=== PATIENT | female | born 1970 | race Caucasian/White ===

== ENCOUNTER 2024-02-15 08:07 | Outpatient (AMB) | payer MEDICAID, SELFPAY ==
--- NOTE | 2024-02-15 08:18 | ORTHONT_ITS ---
Vital signs 02/15/24 08:19 Height 1.68 m Height Method Stated Weight 86.693 kg Weight Measurement Method Standing Scale BMI 30.7 BP 125/85 H Blood Pressure Source Automatic Cuff Blood Pressure Location Right Upper Arm Position Sitting Respiration 19 Pulse 90 Pulse Source Monitor Temp 97.7 F Temp Source Temporal Artery Scan Pulse Oximetry (%) 92 L Oxygen Delivery Method Room Air Med/Allergies Allergies & Medications Allergies codeine Allergy (Mild, Verified 02/15/24 08:22) Rash Medication Reconciliation No Known Home Medications 11/28/23 [History Confirmed 02/15/24] Subjective Visit Visit for: follow up visit and CT Immunization / Flu Flu Vaccine in the Last 12 Months: No Flu Vaccine Exclusion Criteria: Refused by Patient History of Present Illness Chief complaint: CT RESULTS Patient is a pleasant 53-year-old female who has significant right hip pain. This has been going on for over 3 years but is worse in the last 5 months. She takes [place] because of the pain. 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 Personal History Red flag PMH: smoker Pain Pain level (0-10): 6 Pain duration: CONSTANT Pain location: inside (medial) Pain quality: dull Pain timing: night and increases with activity Associated signs & symptoms: numbness, weakness and stiffness Ambulatory data Ambulatory device: none Treatments Improvement with previous injections: No Improvement with PT: No Improvement with NSAIDS: no Review of Systems Review of Systems: All systems negative unless otherwise noted in HPI. Exam Exam Patient is in no acute distress and is cooperative with the examination today. Breathing is nonlabored. In no respiratory distress. Patient has no paraspinal tenderness. Spinal deformity [cannot] be appreciated. The gait of the patient is [nonantalgic] Bilateral extremities were evaluated and demonstrates sensation intact to light touch. Palpable pedal pulses are present. No significant edema is present. Bilateral knees were examined and the patient has full strength and range of motion.. The left hip was examined. Patient was able to flex to 90 degrees, adduct to 30 degrees, abduct to 40 degrees, internally rotate to 20 degrees, and externally rotate to 20 degrees. Patient has a negative logroll. Stinchfield is negative. The patient is nontender diffusely to touch. The right hip was examined. Patient was able to flex to [90] degrees, adduct to [30] degrees, abduct to [40] degrees, internally rotate to 10 degrees, and externally rotate to [20] degrees. Patient has a Positive logroll. An MRI was reviewed. This demonstrates right hip avascular no sclerosis and collapse of the femoral head. There is severe joint space narrowing and osteophytes. X-rays demonstrate significant degenerative joint disease with collapse of the femoral head and arthritis. There is not much lateral coverage. We reviewed the CT scan and it appears to be adequate for a total hip replacement with primary components. Does not appear to be abnormal femoral version Assessment and Plan Problem List (1) Avascular necrosis of bone of right hip: Status: Acute Plan: Patient is a pleasant 53-year-old female with right hip avascular porosis. We discussed nonoperative and operative options. Jessica this point time, the patient is miserable. She is failed conservative treatment including anti- inflammatories and conservative management. The pain is affecting her quality life and happiness. We thus discussed total hip replacement as a reasonable option. I talked with the patient regarding her cardiac clearance. It appears it got denied. She is still working on getting cardiology clearance. The nature and purpose of the total hip replacement, alternative method(s) of treatment, the material risks involved, and the possibility of complications were fully explained to the patient. The patient does NOT have any of the following contraindications to HEBER: - Active infection of the hip joint, OR - Active systemic bacteremia, OR - Active skin infection or open wound at surgical site, OR - Neuropathic arthritis, OR - Severe, rapidly progressive neurological disease, OR - Severe medical condition that makes risks of the surgery outweigh the potential benefit The patient was told the most common risks and complications associated with a total hip replacement include, but are not limited to: blood clots in the leg, fatal pulmonary embolism, dislocation of the prosthesis, intraoperative and postoperative fractures of the femur or acetabulum, infection, failure of the prosthesis or grafting materials, complications from anesthesia, reactions to blood transfusions, postoperative leg length inequality, instability of the hip replacement, nerve damage or injury, vascular injury, delayed wound healing, infection, other injury or even . In addition, there are risks associated with anesthesia given during this operation. Also, the patient was told that after undergoing a total hip replacement there may still be persistent pain or disability. The patient was informed that the success of this operation in part depends upon the mechanical devices which are going to be implanted and that these devices can fail or malfunction, and may need to be repaired or replaced and there are no guarantees as to the longevity of this device or its parts and that it or its parts could fail prematurely. The patient was also notified that during the course of surgery, there may be a need to use bone graft from donors, and that any bone graft used will be carefully screened for communicable diseases, including AIDS, hepatitis, Serge-Creutzfeldt, or other diseases, but despite the screening procedures, there is a small chance that they could contract one of these diseases. Finally, the patient was asked to follow completely and fully with all advice and recommended treatments, and that recovery and ultimate outcome are affected by their compliance with recommended treatment. We discussed the risks, benefits and treatment alternatives, and the patient is interested in proceeding with surgery. We will try to set this up as expeditiously as possible. Office Procedures GNS Level of Care Nursing/Assessment Patient Status: Established Patient Nursing Assessment/Reassesment: Medication Reconciliation, Update PMH in EMR and Vital Signs Coordination of Care: Complex Care and Chronic Disease 1-5, Education Complex Pt/Fam, Consent,records obtained, informed consent, 1 Ins Authorization, Results/Orders obtained and Staff clarify orders Established Patient Charge Established Patient Point Assignment: 110 Established Patient Point Charge: EP Level 3 (80-115) Past Medical History Past Medical History Have you ever been diagnosed with any of the following: Cardiology Problems Congestive Heart Failure: No Respiratory Problems Chronic Obstructive Pulmonary Disease (COPD): No Smoking: Yes Smoking Cessation Counseling: No Smoking Exposure: Yes Genital/Urinary Problems Renal Disease: No Endocrine Problems Diabetes Mellitus Type 1: No Diabetes Mellitus Type 2: No Psychologic Problems Schizophrenia: Yes Bipolar Disorder: Yes Other Problems Blood Transfusions: Yes
[2024-02-15 08:19] VITALS: BP 125/85; PULSE 90; RESP 19; TEMP 36.5; O2SAT 92; BMI 30.7
== END 2024-02-15 08:41 | disposition home or self-care (01) ==
LOC: HODSRG 08:07
PROVIDERS: PCP Physician Assistant; Referring Provider Physician Assistant; Supervising Provider Orthopaedic Surgery Adult Reconstructive Orthopaedic Surgery; Visit Provider Orthopaedic Surgery Adult Reconstructive Orthopaedic Surgery
DX: M87.88 Other osteonecrosis, other site (principal)
CPT/HCPCS: 99213; G0463

== ENCOUNTER 2024-06-20 09:10 | Outpatient (AMB) | payer MEDICAID, SELFPAY ==
[2024-06-20 09:31] VITALS: BP 102/69; PULSE 94; RESP 8; TEMP 36.6; O2SAT 90; BMI 32.2
--- NOTE | 2024-06-20 09:31 | PD.ORTHCLVIS ---
Vital signs 06/20/24 09:31 Height 1.68 m Height Method Stated Weight 90.974 kg Weight Measurement Method Standing Scale BMI 32.2 BP 102/69 Blood Pressure Source Automatic Cuff Blood Pressure Location Right Upper Arm Position Sitting Respiration 8 L Pulse 94 Pulse Source Monitor Temp 97.8 F Temp Source Temporal Artery Scan Pulse Oximetry (%) 90 L Oxygen Delivery Method Room Air Med/Allergies Allergies & Medications Allergies codeine Allergy (Mild, Verified 06/20/24 09:32) Rash Medication Reconciliation No Known Home Medications 11/28/23 [History Confirmed 06/20/24] Exam Exam Patient is in no acute distress and is cooperative with the examination today. Breathing is nonlabored. In no respiratory distress. Patient has no paraspinal tenderness. Spinal deformity [cannot] be appreciated. The gait of the patient is [nonantalgic] Bilateral extremities were evaluated and demonstrates sensation intact to light touch. Palpable pedal pulses are present. No significant edema is present. Bilateral knees were examined and the patient has full strength and range of motion.. The left hip was examined. Patient was able to flex to 90 degrees, adduct to 30 degrees, abduct to 40 degrees, internally rotate to 20 degrees, and externally rotate to 20 degrees. Patient has a negative logroll. Stinchfield is negative. The patient is nontender diffusely to touch. The right hip was examined. Patient was able to flex to [90] degrees, adduct to [30] degrees, abduct to [40] degrees, internally rotate to 10 degrees, and externally rotate to [20] degrees. Patient has a Positive logroll. An MRI was reviewed. This demonstrates right hip avascular no sclerosis and collapse of the femoral head. There is severe joint space narrowing and osteophytes. X-rays demonstrate significant degenerative joint disease with collapse of the femoral head and arthritis. There is not much lateral coverage. We reviewed the CT scan and it appears to be adequate for a total hip replacement with primary components. Does not appear to be abnormal femoral version Assessment and Plan Problem List (1) Avascular necrosis of bone of right hip: Status: Acute Plan: Patient is a pleasant 53-year-old female with right hip avascular porosis. We discussed nonoperative and operative options. Jessica this point time, the patient is miserable. She has failed conservative treatment including anti-inflammatories and conservative management. The pain is affecting her quality life and happiness. We thus discussed total hip replacement as a reasonable option. I talked with the patient regarding her cardiac clearance. It appears it got denied. She is still working on getting cardiology clearance. The nature and purpose of the total hip replacement, alternative method(s) of treatment, the material risks involved, and the possibility of complications were fully explained to the patient. The patient does NOT have any of the following contraindications to HEBER: - Active infection of the hip joint, OR - Active systemic bacteremia, OR - Active skin infection or open wound at surgical site, OR - Neuropathic arthritis, OR - Severe, rapidly progressive neurological disease, OR - Severe medical condition that makes risks of the surgery outweigh the potential benefit The patient was told the most common risks and complications associated with a total hip replacement include, but are not limited to: blood clots in the leg, fatal pulmonary embolism, dislocation of the prosthesis, intraoperative and postoperative fractures of the femur or acetabulum, infection, failure of the prosthesis or grafting materials, complications from anesthesia, reactions to blood transfusions, postoperative leg length inequality, instability of the hip replacement, nerve damage or injury, vascular injury, delayed wound healing, infection, other injury or even . In addition, there are risks associated with anesthesia given during this operation. Also, the patient was told that after undergoing a total hip replacement there may still be persistent pain or disability. The patient was informed that the success of this operation in part depends upon the mechanical devices which are going to be implanted and that these devices can fail or malfunction, and may need to be repaired or replaced and there are no guarantees as to the longevity of this device or its parts and that it or its parts could fail prematurely. The patient was also notified that during the course of surgery, there may be a need to use bone graft from donors, and that any bone graft used will be carefully screened for communicable diseases, including AIDS, hepatitis, Serge-Creutzfeldt, or other diseases, but despite the screening procedures, there is a small chance that they could contract one of these diseases. Finally, the patient was asked to follow completely and fully with all advice and recommended treatments, and that recovery and ultimate outcome are affected by their compliance with recommended treatment. We discussed the risks, benefits and treatment alternatives, and the patient is interested in proceeding with surgery. We will try to set this up as expeditiously as possible. Office Procedures GNS Level of Care Nursing/Assessment Patient Status: Established Patient Nursing Assessment/Reassesment: Medication Reconciliation, Update PMH in EMR and Vital Signs Coordination of Care: Complex Care and Chronic Disease 1-5, Education Complex Pt/Fam, Consent,records obtained, informed consent, 2-3 Insurance Autorizations needed, Lab and Imaging orders, Results/Orders obtained and Staff clarify orders Established Patient Charge Established Patient Point Assignment: 130 Established Patient Point Charge: EP Level 4 (120-155) MA Intake Visit Data Collection New Patient or Established: Established Patient (seen at [facility] within 3 years) Reason for Visit:: PRE-OP RIGHT HIP Seen by Clinical Staff ONLY (RN/MA): No Verbal consent obtained for Telemed visit?: 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 PCP or OBGYN visit in last 3 months: Yes Hx Now: No Do You Feel Safe at Home: Yes Authorities Contacted: N/A Questionairres Past Medical History Past Medical History Have you ever been diagnosed with any of the following: Cardiology Problems Congestive Heart Failure: No Respiratory Problems Chronic Obstructive Pulmonary Disease (COPD): No Smoking: Yes Smoking Cessation Counseling: No Smoking Exposure: Yes Genital/Urinary Problems Renal Disease: No Endocrine Problems Diabetes Mellitus Type 1: No Diabetes Mellitus Type 2: No Psychologic Problems Schizophrenia: Yes Bipolar Disorder: Yes Other Problems Blood Transfusions: Yes Subjective Visit Visit for: follow up visit and hip Immunization / Flu Flu Vaccine in the Last 12 Months: No Flu Vaccine Exclusion Criteria: No Exclusion Criteria History of Present Illness Chief complaint: PRE-OP RIGHT HIP Patient is a 53-year-old female with right hip avascular porosis. The pain is affecting her quality life and happiness. She recently got a cardiac clearance and was cleared for surgery. This did delay surgery quite a bit Pain Pain level (0-10): 7 Pain duration: ALL DAY Pain location: groin Pain quality: sharp, dull and aching Pain timing: increases with activity Associated signs & symptoms: numbness, weakness and stiffness Ambulatory data Ambulatory device: none Treatments Improvement with previous injections: No Improvement with PT: No Improvement with NSAIDS: no Review of Systems Review of Systems: All systems negative unless otherwise noted in HPI.
== END 2024-06-20 10:35 | disposition home or self-care (01) ==
LOC: HODSRG 09:10
PROVIDERS: PCP Physician Assistant; Referring Provider Physician Assistant; Supervising Provider Orthopaedic Surgery Adult Reconstructive Orthopaedic Surgery; Visit Provider Orthopaedic Surgery Adult Reconstructive Orthopaedic Surgery
DX: M87.9 Osteonecrosis, unspecified (principal)
CPT/HCPCS: 99214; G0463

== ENCOUNTER → 2024-07-10 | Outpatient (CLI) | payer MEDICAID, SELFPAY ==
--- NOTE | 2024-07-10 16:30 | XR_ITS ---
Examination: CT bilateral lower extremities, without contrast. 2-D sagittal reconstructions. 2-D coronal reconstructions. 3-D reconstructions. Date and time of exam:July 10, 2024 1626 hours INDICATIONS: Right hip pain, diagnosis unilateral osteoarthritis right hip 2 years CTDI: vol (mGy):16.4 DLP: (mGycm):887 Technique: Multiple 1.25 mm axial sections of the bilateral lower extremities without intravenous contrast have been obtained. 2-D sagittal and coronal reconstructions have been obtained. 3-D reconstructions have been obtained. Low dose protocols were performed. One or more of the following dose reduction techniques were used; automated exposure control, adjustment of the mA and/or KV according to patient size, use of iterative reconstruction technique. Findings: Moderate osteopenia Advanced right hip osteoarthritis, severe joint space narrowing and subarticular cyst formation Advanced narrowing left hip joint Moderate narrowing medial joint space right knee Moderate narrowing medial joint space left knee IMPRESSION: Advanced right hip osteoarthritis, severe joint space narrowing
[2024-07-10 17:20] LABS: HCG Qualitative,Urine Negative
== END | disposition home or self-care (01) ==
LOC: CCTX 16:06
PROVIDERS: PCP Physician Assistant; Referring Provider Orthopaedic Surgery Adult Reconstructive Orthopaedic Surgery; Visit Provider Orthopaedic Surgery Adult Reconstructive Orthopaedic Surgery
DX: M16.11 Unilateral primary osteoarthritis, right hip (principal); M25.851 Other specified joint disorders, right hip
CPT/HCPCS: 72192; 73700; 81025

== ENCOUNTER 2024-07-17 05:30 | Day surgery (SDC) | payer MEDICAID, SELFPAY ==
[2024-07-15 10:04] VITALS: BMI 32.2
[2024-07-15 10:54] LABS: Basophils # (Auto) 0.1 Thou/mm3 (0.0-0.2); Basophils % (Auto) 1 % (0-2.5); Eosinophils # (Auto) 0.2 Thou/mm3 (0.0-0.5); Eosinophils % (Auto) 2 % (0-10); Hematocrit 40.8 % (36.0-46.0); Hemoglobin 13.7 g/dL (12.0-16.0); Immature Granulocytes % (Auto) 0 % (0-0); Immature Granulocytes Auto 0.02 Thou/mm3 (0.00-0.00); Lymphocytes # (Auto) 1.6 Thou/mm3 (1.0-4.8); Lymphocytes % (Auto) 20 % (10-50); Mean Corpuscular HGB Conc 33.6 g/dl (31.0-37.0); Mean Corpuscular Hemoglobin 30.2 pg (25.0-35.0); Mean Corpuscular Volume 90 fL (80-100); Monocytes # (Auto) 0.5 Thou/mm3 (0.0-0.8); Monocytes % (Auto) 6 % (0-12); Neutrophils # (Auto) 5.7 Thou/mm3 (1.8-7.7); Neutrophils % (Auto) 71 % (37-80); Nucleated Red Blood Cell % 0 /100 WBC (0); Platelet Count 220 Thou/mm3 (140-440); RDW Standard Deviation 50.7 fL (36.4-46.3); Red Blood Count 4.53 Miln/mm3 (4.00-5.20)
[2024-07-15 11:09] LABS: Partial Thromboplastin Time 27.3 Seconds (22.0-36.0)
[2024-07-15 11:33] LABS: Alanine Aminotransferase 12 U/L (10-49); Albumin, Serum 4.6 gm/dL (3.5-5.0); Albumin/Globulin Ratio 1.4 (1.2-2.2); Alkaline Phosphatase 115 U/L (46-116); Anion Gap 10 (7-16); Aspartate Amino Transferase 16 U/L (0-34); BUN/Creatinine Ratio 13 Ratio (12-20); Bilirubin,Total 0.5 mg/dL (0.3-1.2); Blood Urea Nitrogen 8 mg/dL (9-23); Calcium 9.7 mg/dL (8.3-10.6); Calcium (Corrected) 9.7 mg/dL (8.5-10.1); Carbon Dioxide 21.7 mMol/L (20.0-31.0); Chloride 104 mMol/L (98-107); Creatinine (Component) 0.6 mg/dL (0.6-1.3); Estimated Creatinine Clearance 118.7 mL/min (>60); Globulin 3.3 gm/dL (2.3-3.5); Glucose 105 mg/dL (74-106); Osmolality,Calculated 270 (275-295); Potassium 4.1 mMol/L (3.4-5.1); Sodium 136 mMol/L (136-145); Total Protein 7.9 gm/dL (5.7-8.2); eGFR > 60 See Note
--- NOTE | 2024-07-16 15:14 | SUR.PREOP ---
Cardiac history and records reviewed with Dr Reich.
[2024-07-17] VITALS (18 sets, daily range): BP systolic 101–146; BP diastolic 57–88; PULSE 55–79; RESP 12–20; TEMP 36.2–37.1; O2SAT 95–99; BMI 32.3; BMI 13.0
[2024-07-17] MEDS: MELOXICAM 7.5 MG TABLET PO (06:19)
[2024-07-17] MEDS: ACETAMINOPHEN 325 MG TABLET 650 MG PO (06:19)
[2024-07-17] MEDS: PREGABALIN 75 MG CAPSULE PO (06:19)
--- NOTE | 2024-07-17 07:15 | CHAP ---
Visited briefly with patient and talked a bit about her family and had prayer before her procedure.
--- NOTE | 2024-07-17 08:30 | XR_ITS ---
Examination: AP right hip 2 views Technique: AP right hip 2 views Exam date and time: July 17, 2024 0910 hrs. Indications: Status post total right hip arthroplasty Findings: Moderate osteopenia Total right hip arthroplasty. Satisfactory alignment Impression: Total right hip arthroplasty with satisfactory alignment
--- NOTE | 2024-07-17 09:48 | PD.SUROPNT ---
Date of Procedure 07/17/24 Pre Op Diagnosis right hip osteoarthritis Post Op Diagnosis right hip osteoarthritis Procedure right total hip replacement Findings full thickness cartilage loss and osteophytes Procedure Description Indications: The patient is a 54 y.o. year-old with a longstanding history of right hip pain. After considering the patient's condition and the impact of their hip injury on the patient's quality of life and risks of nonoperative treatment, total hip replacement was offered as a reasonable option. Prior to the surgery I discussed the nature of the hip replacement surgery including alternatives to surgery and the purpose of, and indications for proceeding with surgery. I discussed that this surgery is a shared decision between the patient and the surgeon. We also discussed her risk of infection given her recent increase in weight. Risks and benefits and alternatives of the procedure have been explained to the patient and their family. Anesthesia complications and risks include but are not limited to stroke, heart attack, and . The surgical risks include but are not limited to infection, instability/dislocation, bleeding, nerve and blood vessel injury, deep vein thrombosis, pulmonary embolus, stiffness, pain, scar, need for reoperation, leg length discrepancy, thigh numbness, weakness, and mechanical failure of the implant including loosening, metal complications, metal allergy, wear or breakage. I discussed the expected recovery from surgery and the importance of compliance with all our pre and post-operative recommendations in order to maximize the recovery. The patient/family understands the risks of loss of life, loss of limb and, loss of function and wishes to proceed. They understand they are at increased risk for infection given their history of smoking. A signed and witnessed consent was obtained and placed in the chart. Patient Positioning: The patient was placed in the lateral decubitus position on a standard table using a pegboard. An axillary role was placed. All extremities were padded to ensure adequate protection. A matamoros catheter was aseptically inserted. Time Out: A timeout was performed prior to the procedure which verified the correct patient, positioning, operation to be performed, operative site, antibiotics, allergies, imaging, and any other concerns. All parties were in agreement. Procedure in detail: The operative site was cleaned and draped in the usual sterile fashion. A final timeout was performed with all parties in agreement. We first placed hip arrays above the ASIS. A modified anterolateral approach to the hip was utilized. A 16cm skin incision was made centered over the greater trochanter in line with the femur. This was taken down through skin and subcutaneous tissue using a 10 blade. Bleeding was controlled using electrocautery. The fascia was identified and split in line with the femur. The charnley retractor was then placed. The abductor insertion was identified and a split made in the anterior 1/3 of the tendon proximally. Retractors were placed and the gluteus minimus was visualized. A capsulotomy was made down to the femoral neck anterior to the minimus. A split was then made in the anterior 1/3 of the vastus lateralis. A retractor was then placed anterior to the femoral shaft, the tendon was tagged with #1 ethibond sutures and a U-shaped split was made in the anterior 1/3 of the abductor tendon being careful to leave enough tendon to re-attach. The hip was then gently externally rotated as the anterior tissues were taken down with the tendon and capsule as one sleeve. Once the anterior tissue had been release off of bone a bone hook was placed and the hip was gently dislocated. Retractors were placed around the femoral neck and the femoral neck osteotomy was then made to freshen up the cut. The femoral head removed. The leg was then placed in extension and retractors were placed anterior and posterior to the acetabulum. The inferior capsule was release to improved visualization and the labrum and osteophytes around the acetabulum were removed. The acetabulum was then reamed to bleeding bone with adequate wall coverage and the cup was impacted into place. The [employer] robot was used for reaming and placement. Screws were then placed followed by the liner which was impacted and confirmed to be seated. We then turned our attention to the femur. The leg was brought into external rotation and the femur was exposed. A canal finder was used followed by a box osteotomy and the femur was broached sequentially. The trial stem was then left in and the hip was trialed using various neck offsets and head sizes until the appropriate size was found based on leg length, stability. We then verified length and offset with the robot. Once we were satisfied with the construct a cross-table AP pelvis radiograph was obtained to confirm appropriate positioning and sizing. The hip was then dislocated and the trials were then removed and the final stem impacted into placed. The hip was then again trialed and the appropriate head size identified. The forbes taper was then cleaned and dried and the final head impact into place and tested. The acetabulum was irrigated and confirmed to be free of debris. The hip was then reduced and taken through range of motion. The hip was stable in abduction and external rotation, adduction and external rotation, flexion past 90 degrees and internal rotation past 20 degrees. It did not sublux throughout range of motion and no impingement was detected. Leg lengths were appropriately restored based on preoperative leg lengths and intraoperative testing. . The hip was then copiously irrigated with dilute betadine followed by normal saline. The hip was then injected with the cocktail per protocol The hip was the closed in layers. The abductor tendon was closed with #1 ethibond. The fascia was closed with 0 Vicryl followed by an 0 V-lock. . The deep layer was closed with 0-Vicryl and the subcutaneous layer by a 2-0 Vicryl. The subdermal layer was closed with a 3-0 monocryl. The skin was then cleaned and dried and steri-strips placed followed by a sterile dressing. The drapes were then taken down and the patient was placed supine. Leg lengths were confirmed to be appropriate and the patient's lower extremities were warm and well perfused with brisk capillary refill and palpable pulses. The patient was then awoken, transferred to the [facility] and taken to the PACU in stable condition. They tolerated the procedure well. The patient's family/caregiviers were made aware of their condition. Postoperative plan Activity: WBAT, no hip precautions , no active hip abduction DVT Prophylaxis: aspirin 81mg BID Antibiotics: Standard postoperative antibiotics x 24 hours Implants: Jayden 48 cup, 3 HO insignia, 1 screw, standard liner, 36+5 head Anesthesia GETA Implants jayden Pathology / specimen None Pathology comment: none Estimated Blood Loss 150 Condition Stable Disposition same day Surgeon Jaya Fry MD Surgical Staff Operation Date: 07/17/24 07:30 Case Staff SENIOR ENGINEERING TECHNICIAN: Kai Langston RN First Assistant: Ciara Flores
--- NOTE | 2024-07-17 09:56 | XR_ITS ---
Examination:Right hip AP, lateral, AP pelvis 3 views Technique: Hip AP lateral, AP pelvis, 3 views Exam date and time:July 17, 2024 1003 hrs. Indications: Postop right hip arthroplasty Findings: Total right hip arthroplasty. Satisfactory alignment Moderate narrowing left hip joint Impression: Total right hip arthroplasty with satisfactory alignment.
--- NOTE | 2024-07-17 10:10 | SUR.PHASEI ---
1010 Patient arrived to recovery resting comfortably in [facility], on oxygen 8L via oxy mask, breathing unlabored, vital signs stable, denies pain, dressing intact to right hip; prieno, telfa, abd, medipore tape, no bleeding noted, bilateral dorsalis pedis pulses present when palpated, patient has good circulation to right lower extremity; skin color normal for patient and warm to touch, report received from Renetta JOHNSON/Sosa JOHNSON and Kai BARAJAS
--- NOTE | 2024-07-17 10:45 | SUR.PHASEI ---
1045 XRAY complete per MD order
--- NOTE | 2024-07-17 11:42 | SUR.PHASEII ---
pt sitting [place] in [facility] [place] incentive spirometer, VS stable, breathing unlabored, dressing to right hip clean, dry, and intact, pt denies pain, report from Kacey Parks RN
--- NOTE | 2024-07-17 12:10 | SUR.PHASEII ---
Chapar[facility]a Physical Therapist at bedside
--- NOTE | 2024-07-17 12:27 | SUR.PHASEII ---
1227 Patient cleared by physical therapy Chaparrita to proceed with discharge
--- NOTE | 2024-07-17 12:35 | SUR.PHASEII ---
1235 called patients to let him know patient is ready for discharge, stated he was having lunch and would come when he was done
== END 2024-07-17 13:54 | disposition home or self-care (01) ==
PROVIDERS: Anesthesiology; PCP Physician Assistant; Referring Provider Orthopaedic Surgery Adult Reconstructive Orthopaedic Surgery; Visit Provider Orthopaedic Surgery Adult Reconstructive Orthopaedic Surgery
PROC: (CPT 27130; principal; 2024-07-17 07:30)
DX: M16.11 Unilateral primary osteoarthritis, right hip (principal); Z87.891 Personal history of nicotine dependence; M25.751 Osteophyte, right hip
CPT/HCPCS: 27130; 36415; 73501; 73502; 80053; 85025; 85610; 85730; 97162; A4217; A4649; C1713; C1776; J0131; J0690; J1100; J2250; J2704; J3010; J3490; J7030; J7999; A9270

== ENCOUNTER 2024-08-01 11:03 | Outpatient (AMB) | payer MEDICAID, SELFPAY ==
[2024-08-01 11:22] VITALS: BP 121/75; PULSE 98; RESP 18; TEMP 36.4; O2SAT 91; BMI 32.8
--- NOTE | 2024-08-01 11:22 | ORTHONT_ITS ---
Vital signs 08/01/24 11:22 Height 1.65 m Height Method Stated Weight 89.414 kg Weight Measurement Method Standing Scale BMI 32.8 BP 121/75 Blood Pressure Source Automatic Cuff Blood Pressure Location Right Upper Arm Position Sitting Respiration 18 Pulse 98 Pulse Source Monitor Temp 97.5 F Temp Source Temporal Artery Scan Pulse Oximetry (%) 91 L Oxygen Delivery Method Room Air Med/Allergies Allergies & Medications Allergies No Known Allergies Allergy (Verified 08/01/24 11:23) Medication Reconciliation alprazolam 0.5 mg tablet 0.5 mg PO Q8HR PRN anxiety 07/15/24 [History Confirmed 08/01/24] atorvastatin 20 mg tablet 20 mg PO DAILY 07/15/24 [History Confirmed 08/01/24] hydrocodone 5 mg-acetaminophen 325 mg tablet 1 tab PO Q12H PRN pain 07/15/24 [History Confirmed 08/01/24] levalbuterol tartrate 45 mcg/actuation aerosol inhaler 1 inh inhalation Q4H PRN shortness of breath or wheezing 07/15/24 [History Confirmed 08/01/24] lurasidone 20 mg tablet (Latuda) 20 mg PO QAM 07/15/24 [History Confirmed 08/01/24] acetaminophen 500 mg tablet (Acetaminophen Extra Strength) 1,000 mg (2 x 500 mg) PO Q6H PRN pain #90 tabs 07/17/24 [Rx Confirmed 08/01/24] aspirin 81 mg tablet,delayed release 81 mg PO BID #60 tabs 07/17/24 [Rx Confirmed 08/01/24] doxycycline hyclate 100 mg tablet 100 mg PO BID #14 tabs 07/17/24 [Rx Confirmed 08/01/24] gabapentin 300 mg capsule 300 mg PO .qhs #30 caps 07/17/24 [Rx Confirmed 08/01/24] hydrocodone 5 mg-acetaminophen 325 mg tablet 1 tab PO Q6H PRN pain #28 tabs 07/17/24 [Rx Confirmed 08/01/24] oxycodone 5 mg tablet 5 mg PO Q6H PRN pain #28 tabs 07/17/24 [Rx Confirmed 08/01/24] sennosides 8.6 mg-docusate sodium 50 mg tablet (Senna-S) 1 tab-cap PO QDAY #30 tabs 07/17/24 [Rx Confirmed 08/01/24] Exam Exam Patient is in no acute distress and is cooperative with the examination today. Patient has a normal mood and affect. Breathing is nonlabored. In no respiratory distress. Bilateral extremities were evaluated and demonstrates sensation intact to light touch. Palpable pedal pulses are present. No significant edema is present. Right hip incision is clean dry and intact Assessment and Plan Problem List (1) Avascular necrosis of bone of right hip: Status: Acute Plan: Patient is a pleasant 53-year-old female with right hip avascular Necrosis who had a recent right total hip replacement 2 weeks ago. She is doing well. She should transition to outpatient physical therapy and finish her DVT prophylaxis Office Procedures GNS Level of Care Nursing/Assessment Patient Status: Established Patient Nursing Assessment/Reassesment: Medication Reconciliation, Update PMH in EMR and Vital Signs Coordination of Care: Complex Care and Chronic Disease 1-5, Education Complex Pt/Fam, Consent,records obtained, informed consent, Lab and Imaging orders, Results/Orders obtained and Staff clarify orders Established Patient Charge Established Patient Point Assignment: 110 Established Patient Point Charge: EP Level 3 (80-115) MA Intake Visit Data Collection New Patient or Established: Established Patient (seen at [facility] within 3 years) Reason for Visit:: 2 WEEK POST OP Seen by Clinical Staff ONLY (RN/MA): No Verbal consent obtained for Telemed visit?: No Objects Conservator Required: No PCP or OBGYN visit in last 3 months: Yes Hx Now: No Do You Feel Safe at Home: Yes Authorities Contacted: N/A Questionairres Past Medical History Past Medical History Have you ever been diagnosed with any of the following: Neurological Problems Seizures: No Cardiology Problems Hypercholesterolemia: Yes Congestive Heart Failure: No Respiratory Problems Chronic Obstructive Pulmonary Disease (COPD): No Asthma: Yes Smoking: Yes Smoking Cessation Counseling: No Smoking Exposure: Yes Stomache/Intestinal Problems Hepatitis: No Obesity: Yes Genital/Urinary Problems Renal Disease: No Reproductive Problems Previous Pregnancies: Yes Musculoskeletal Problems Arthritis: Yes Endocrine Problems Diabetes Mellitus Type 1: No Diabetes Mellitus Type 2: No Psychologic Problems Schizophrenia: No Bipolar Disorder: Yes Anxiety: Yes Other Problems Hospitalization: Yes Shingles: No Blood Transfusions: No Blood Transfusion Reaction: No Anesthesia Reactions: No Chicken Pox: Yes Cancer: No Subjective Visit Visit for: post op #1 and hip Immunization / Flu Flu Vaccine in the Last 12 Months: Yes Flu Vaccine Exclusion Criteria: No Exclusion Criteria History of Present Illness Chief complaint: 2 WEEK POST OP HEBER Date of 1st surgery (if applicable): 07/17/24 Patient is doing well 2 weeks status post right total hip replacement. She is doing well Personal History Occupation: DISABLED Red flag PMH: BMI BMI Counceling provided: Yes Pain Pain level (0-10): 8 Pain location: groin Pain quality: sharp, dull and aching Pain timing: night and increases with activity Associated signs & symptoms: numbness Ambulatory data Ambulatory device: walker Treatments Improvement with previous injections: No Improvement with PT: No Improvement with NSAIDS: no Review of Systems Review of Systems: All systems negative unless otherwise noted in HPI.
== END 2024-08-01 11:31 | disposition home or self-care (01) ==
LOC: HODSRG 11:03
PROVIDERS: PCP Physician Assistant; Referring Provider Physician Assistant; Supervising Provider Orthopaedic Surgery Adult Reconstructive Orthopaedic Surgery; Visit Provider Orthopaedic Surgery Adult Reconstructive Orthopaedic Surgery
DX: M87.88 Other osteonecrosis, other site (principal); Z96.641 Presence of right artificial hip joint; E78.00 Pure hypercholesterolemia, unspecified
CPT/HCPCS: 99213; G0463

== ENCOUNTER 2024-08-28 09:30 | Outpatient (RCR) | payer MEDICAID, SELFPAY ==
--- NOTE | 2024-08-26 08:36 | PTNOTE_ITS ---
PT OP Initial Eval Patient Information Outpatient Physical Therapy Treatment Date: 08/26/24 Visit Reasons: Right HEBER Medical Diagnosis: Z96.641 Treatment Dx #1: R hip pain Start of Care: 08/26/24 Date of Onset: 07/17/24 DOS Smoking Status Smoking Status: Light (< 1 pack/day) Cessation Counseling Provided: CHEMO was advised that quitting smoking is the single most important factor to protect the health of themselves and their family. Discussed the benefits of quitting smoking with patient. Encouraged patient to quit smoking and provided Cessation assistance materials and resources. Tobacco Use: Cigarette Years smoked: 35 Are you interested in quitting?: Yes Would you like additional Smoking Cessation Counseling?: No Initial Assessment Subjective: Pt is 54 yr old female s/p R HEBER presents ambulating without assistive device and reports she is limping. The hip hurts less after sx but she feels scared to put all her weight on the R side since she is used to limping for a long time on that side. PMH: smoker, C-sections, high cholesterol, anxiety Pt goal: to walk right to exercise Objective: R hip AROM: Strength: Flexion: 75 deg 4-/5 Abd: 35 deg 4-/5 Adduction: 4/5 SLR: 30 deg Gait: lateral sway to the R Assessment: Pt presentation consistent with referring Dx of R HEBER. Pt requires skilled therapy to meet goals and has good rehab potential. Short Term and Chcf Goals 1. Ind with HEP 2. Improved R hip flexion ROM to 90 deg and abduction to 40 deg 3. Improved strength to 4/5 in all planes 4. Pt will ambulate with symmetrical pattern and equal lateral sway R/L Treatment Plan ?1. Manual therapy ? 2. Therex ? 3. Modalities as indicated, moist heat, ice, estim Frequency and Duration: 2x a week for 18 visits plus the eval Certification Dates: 08/26/24 to 11/24/24 Procedure Charges OP PT Eval Mod Complex 30 minutes: Yes
--- NOTE | 2024-08-28 10:35 | PT.ODAYNRPT ---
PT Outpatient Daily Note OP Daily Note Outpatient Physical Therapy Treatment Date: 08/28/24 Visit Reasons: Right HEBER Subjective: Pt reports R hip is sore and notices her back is starting to hurt more. Objective: Please see flow sheet for ther ex list. Assessment: Pt instructed and educated on gait and to incorporate arm swing, pt able to replicate after a few attempts. Plan: Continue with pOC. Length of Time (minutes) of Treatment: 30 Minutes Procedure Charges Therapeutic Exercise 30 minutes: Yes
== END 2024-09-07 23:59 | disposition home or self-care (01) ==
LOC: CPTX 09:30
PROVIDERS: PCP Physician Assistant; Referring Provider Orthopaedic Surgery Adult Reconstructive Orthopaedic Surgery; Visit Provider Orthopaedic Surgery Adult Reconstructive Orthopaedic Surgery
DX: M25.551 Pain in right hip (principal); Z96.641 Presence of right artificial hip joint; Z71.6 Tobacco abuse counseling; F17.210 Nicotine dependence, cigarettes, uncomplicated
CPT/HCPCS: 97110; 97162

== ENCOUNTER 2024-10-07 10:30 | Outpatient (RCR) | payer MEDICAID, SELFPAY ==
--- NOTE | 2024-09-10 16:22 | PT.ODAYNRPT ---
PT Outpatient Daily Note OP Daily Note Outpatient Physical Therapy Treatment Date: 09/10/24 Visit Reasons: RT HEBER Subjective: Pt reports hip was really sore after last session, painful took a few days to recover. Objective: Please see flow sheet for ther ex list. Assessment: Regressed interventions to accommodate reported pain. Plan: Continue with POC. Length of Time (minutes) of Treatment: 30 Minutes Procedure Charges Therapeutic Exercise 30 minutes: Yes
--- NOTE | 2024-09-19 15:30 | PT.ODAYNRPT ---
PT Outpatient Daily Note OP Daily Note Outpatient Physical Therapy Treatment Date: 09/19/24 Visit Reasons: RT HEBER Subjective: Continued moderate pain of R hip. Doing HEP Objective: See F/S for therex Assessment: Moderate tissue irritability of R hip limits resistive therex reps. Plan: Continue per POC Length of Time (minutes) of Treatment: 30 Minutes Procedure Charges Therapeutic Exercise 30 minutes: Yes
--- NOTE | 2024-10-07 11:02 | PT.ODAYNRPT ---
PT Outpatient Daily Note OP Daily Note Outpatient Physical Therapy Treatment Date: 10/07/24 Visit Reasons: RT HEBER Subjective: Continued moderate pain of R hip. Doing HEP Objective: See F/S for therex Assessment: Moderate tissue irritability of R hip limits resistive therex reps. Plan: Continue per POC Length of Time (minutes) of Treatment: 30 Minutes Procedure Charges Therapeutic Exercise 30 minutes: Yes
== END 2024-10-07 23:59 | disposition home or self-care (01) ==
LOC: CPTX 10:30
PROVIDERS: PCP Orthopaedic Surgery Adult Reconstructive Orthopaedic Surgery; Referring Provider Orthopaedic Surgery Adult Reconstructive Orthopaedic Surgery; Visit Provider Orthopaedic Surgery Adult Reconstructive Orthopaedic Surgery
DX: M25.551 Pain in right hip (principal); Z96.641 Presence of right artificial hip joint
CPT/HCPCS: 97110

== ENCOUNTER → 2025-01-10 | Outpatient (CLI) | payer MEDICAID, SELFPAY ==
--- NOTE | 2025-01-10 16:30 | XR_ITS ---
Examination: CT chest, without intravenous contrast. Sagittal and coronal 2-D reconstructions. Exam date and time: January 10, 2025, 1614 hrs. Indications: Smoking history 23 years, low-dose Cancer screening study CTDI:vol (mGy) 11.7 DLP: (mGycm) 452 Technique: Multiple 3.0 mm axial sections of the chest to been obtained. Bone and lung density settings are obtained. Sagittal and coronal 2-D reconstructions have been obtained. Low dose protocols were performed. One or more of the following dose reduction techniques were used; automated exposure control, adjustment of the mA and/or KV according to patient size, use of iterative reconstruction technique. Findings: No thoracic aortic aneurysmal dilatation Pulmonary artery segments are not enlarged. Mild calcification left anterior descending coronary artery. No paratracheal tracheobronchial or bronchopulmonary adenopathy No pneumonia or pulmonary edema or pleural disease No calcified or noncalcified pulmonary nodules depicted No visualized liver or splenic lesion No gallstones No pancreatic or adrenal mass Impression: No mediastinal lymphadenopathy No pneumonia, pulmonary edema or pleural disease No pulmonary nodules depicted
== END | disposition home or self-care (01) ==
LOC: CCTX 16:01
PROVIDERS: Referring Provider Internal Medicine Critical Care Medicine; Visit Provider Internal Medicine Critical Care Medicine
DX: Z12.2 Encounter for screening for malignant neoplasm of respiratory organs (principal); F17.210 Nicotine dependence, cigarettes, uncomplicated
CPT/HCPCS: 71271

== ENCOUNTER → 2025-02-13 | Outpatient (CLI) | payer MEDICAID, SELFPAY ==
--- NOTE | 2025-02-13 10:30 | XR_ITS ---
Examination: Screening digital mammography, bilateral Computer aided detection 3-D breast Tomosynthesis, bilateral Date and time of exam: 02/13/2025, 10:20 a.m. Comparisons: 07/26/2012 Indications: Screening Technique: Nonmagnified MLO, CC views of the breasts to been obtained, reconstructed from 3-D Tomosynthesis images. R2 computer aided detection program utilized for evaluation of suspicious masses and/or abnormal calcifications. 3-D Tomosynthesis images obtained. Technologist: Findings: The breasts are almost entirely fatty. No evidence of abnormal masses or suspicious calcifications. Impression: BI-RADS category 1: Negative findings (within normal) Recommend 1 year follow-up mammogram
== END | disposition home or self-care (01) ==
LOC: CDIM 10:14
PROVIDERS: Referring Provider Physician Assistant; Visit Provider Physician Assistant
DX: Z12.31 Encounter for screening mammogram for malignant neoplasm of breast (principal); R92.313 Mammographic fatty tissue density, bilateral breasts
CPT/HCPCS: 77063; 77067